=== PATIENT | female | born 1970 ===

== ENCOUNTER 2024-06-08 12:51 | Emergency (ER) | payer SELFPAY ==
[2024-06-08 13:00] VITALS: BP 205/98; PULSE 87; RESP 20; TEMP 36.6; O2SAT 100
--- NOTE | 2024-06-08 14:01 | PC.NURSE ---
Patient up to desk requesting wait time. Patient informed we are unable to give out wait time. Patient asking if we have a fast track she could go to. Patient informed that myself and the other cost and sales record supervisor are concerned about her BP (SBP 200) and that she would go to main side for a monitored room. 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 I will not wait to go to the main side because of my blood pressure. It's because I didn't take my BP medicine. Patient reports she was leaving and declined to be seen. Patient ambulatory out of ED with steady gait and in no acute distress.
== END 2024-06-08 14:01 | disposition left against medical advice (07) ==
LOC: ANHED 14:12
DX: R68.84 Jaw pain (principal)
CPT/HCPCS: 99199